=== PATIENT | male | born 1960 | race Caucasian/White ===

== ENCOUNTER 2016-04-17 19:44 | Emergency (ER) | payer SELFPAY ==
[~2016-04-17] VITALS: Ht 177.8 cm; Wt 91.0 kg
[2016-04-17 19:48] VITALS: BP 130/84; PULSE 75; RESP 16; TEMP 98; O2SAT 97
[2016-04-17 19:54] VITALS: O2SAT 94
[2016-04-17] MEDS ORDERED: DIPHTH/TETANUS/ACEL PERTUSSIS (BOOSTER) 0.5 ML VIAL/PFS IM ONE (20:00)
[2016-04-17] MEDS ORDERED: SODIUM CHLORIDE 0.9% FLUSH 5 ML FLUSH IVF PRN (20:00)
[2016-04-17 20:28] LABS: AUTOMATED NEUTROPHIL # 5.1 TH/MM3 (1.8-7.7); BASOPHIL % 0.5 % (0.0-2.0); EOSINOPHIL % 0.2 % (0.0-4.0); HEMATOCRIT 42.1 % (39.0-51.0); HEMO FLAGS DIFF FINAL; LYMPH % 24.2 % (9.0-44.0); LYMPHOCYTE # 1.8 TH/MM3 (1.0-4.8); MEAN CELL VOLUME 93.1 FL (80.0-100.0); MEAN CORPUSCULAR HEMOGLOBIN 32.9 PG (27.0-34.0); MEAN CORPUSCULAR HGB CONC 35.3 % (32.0-36.0); MONO % 4.3 % (0.0-8.0); NEUT % 70.8 % (16.0-70.0); PLATELET COUNT 218 TH/MM3 (150-450); RED BLOOD COUNT 4.52 MIL/MM3 (4.50-5.90); RED CELL DISTRIBUTION WIDTH 12.8 % (11.6-17.2); WHITE BLOOD COUNT 7.2 TH/MM3 (4.0-11.0)
[2016-04-17 20:30] LABS: APTT (PATIENT) 25.4 SEC (24.3-30.1); PROTHROMBIN TIME - PATIENT 10.9 SEC (9.8-11.6)
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
[2016-04-17] MEDS ORDERED: CYCL1TAB29 PO (20:46)
[2016-04-17] MEDS ORDERED: IBUP-988 PO (20:46)
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
[2016-04-17 20:50] LABS: BICARBONATE 25.6 MEQ/L (21.0-32.0); POTASSIUM 4.2 MEQ/L (3.5-5.1)
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
[2016-04-17 21:29] LABS: BLOOD, URINE NEG (NEG); COMMENT (UR) CULT NOT INDICATED; CULTURE IF INDICATED CULT NOT INDICATED; GLUCOSE,URINE NEG (NEG); KETONE, URINE NEG (NEG); MUCUS URINE FEW /lpf (OCC); NITRITE,URINE NEG (NEG); PH, URINE 5.5 (5.0-8.5); SQUAMOUS EPITHELIAL CELL URINE <1 /hpf (0-5); URINE COLOR LIGHT-YELLOW (YELLW/STRAW)
[2016-04-17 21:32] LABS: AMPHETAMINE, URINE NEG (NEG); BARBITURATES, URINE NEG (NEG); COCAINE, URINE POS (NEG)
[2016-04-17] MEDS ORDERED: SODIUM CHLOR 0.9% 1000 ML INJ 1,000 ML IV ONE (21:45)
[2016-04-17] MEDS ORDERED: HYDROmorphone HCL PF 1 MG/ML VIAL IV PUSH ONE (21:45)
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
== END 2016-04-18 00:31 | disposition home or self-care (01) ==
LOC: NEPE 19:44
DX: S09.90XA Unspecified injury of head, initial encounter (principal); F10.10 Alcohol abuse, uncomplicated; V27.4XXA Motorcycle driver injured in collision with fixed or stationary object in traffic accident, initial encounter; Y93.I9 Activity, other involving external motion; Z23 Encounter for immunization
CPT/HCPCS: 70450; 71010; 72125; 72170; 73610; 80048; 80307; 80320; 81001; 85025; 85610; 85730; 90471; 90715; 96374; 99284; J1170; J7030

== ENCOUNTER 2017-04-15 07:09 | Observation (INO) | payer SELFPAY ==
[~2017-04-15] VITALS: Ht 177.8 cm; Wt 84.4 kg
[2017-04-15] VITALS (8 sets, daily range): BP systolic 96–121; BP diastolic 62–88; PULSE 54–67; RESP 15–18; TEMP 96–97.8; O2SAT 97–98
[~2017-04-15 07:09] MED LIST: CYCL10TA PO; IBUP-988 PO
--- NOTE | 2017-04-15 07:37 | PD ---
HPI Chief Complaint: Chest Pain Time Seen by Provider: 07:22 Travel History International Travel<30 days: No Contact w/Intl Traveler<30days: No Traveled to known affect area: No History of Present Illness HPI 57yo M with no significant PMH presents to the ED with c/o chest pain. Said he had left sided chest pressure since but was intermittent and mild. Said it was constant since last night so decided to come in for evaluation. Had some numbness in left arm. +Nausea. Denies any fever, sob, vomiting, focal weakness. Pt said he also feel like he is in a dazed since and that he cant focus his vision. Denies any trauma or headache. PFSH Past Medical History Diminished Hearing: No Hiatal Hernia: Yes Past Surgical History Other Surgery: Yes (HERNIA REPAIR) Social History Alcohol Use: Yes (2 BEERS, 2 SHOTS OF GIN TODAY) Tobacco Use: No Substance Use: No Allergies-Medications (Allergen,Severity, Reaction): Coded Allergies: No Known Allergies (Unverified Adverse Reaction, Unknown, 04/15/17) Reported Meds & Prescriptions Reported Meds & Active Scripts Active No Active Prescriptions or Reported Medications Review of Systems Except as stated in HPI: all other systems reviewed are Neg Physical Exam Narrative GENERAL: 57yo M in mild distress. SKIN: Focused skin assessment warm/dry. HEAD: Atraumatic. Normocephalic. EYES: Pupils equal and round at 3m bilaterally. EOMI. No nystagmus. ENT: No nasal bleeding or discharge. Mucous membranes pink and moist. NECK: Trachea midline. No JVD. CARDIOVASCULAR: Regular rate and rhythm. No murmur appreciated. RESPIRATORY: No accessory muscle use. Clear to auscultation. Breath sounds equal bilaterally. GASTROINTESTINAL: Abdomen soft, non-tender, nondistended. MUSCULOSKELETAL: No obvious deformities. No clubbing. No cyanosis. No edema. NEUROLOGICAL: Awake and alert. No obvious cranial nerve deficits. Motor grossly within normal limits. Normal speech. PSYCHIATRIC: Appropriate mood and affect; insight and judgment normal. Data Data Last Documented VS Vital Signs Date Time Temp Pulse Resp B/P (MAP) Pulse Ox O2 Delivery O2 Flow Rate FiO2 04/15/17 09:20 65 16 98 Room Air 04/15/17 09:19 109/73 (85) 04/15/17 07:24 97.8 Orders Orders Electrocardiogram (04/15/17 07:31) Basic Metabolic Panel (Bmp) (04/15/17 07:31) Complete Blood Count With Diff (04/15/17 07:31) Magnesium (Mg) (04/15/17 07:31) Prothrombin Time / Inr (Pt) (04/15/17 07:31) Act Partial Throm Time (Ptt) (04/15/17 07:31) Troponin I (04/15/17 07:31) Lipase (04/15/17 07:31) Chest, Single Ap (04/15/17 07:31) Orthostatic Vital Signs (04/15/17 07:31) Ct Brain W/O Iv Contrast(Rout) (04/15/17 ) Aspirin (Aspirin) (04/15/17 09:00) Sodium Chlor 0.9% 1000 Ml Inj (Ns 1000 M (04/15/17 09:00) Labs Laboratory Tests Test 04/15/17 07:50 White Blood Count 6.5 TH/MM3 Red Blood Count 4.46 MIL/MM3 Hemoglobin 14.2 GM/DL Hematocrit 41.9 % Mean Corpuscular Volume 93.8 FL Mean Corpuscular Hemoglobin 31.8 PG Mean Corpuscular Hemoglobin Concent 33.9 % Red Cell Distribution Width 12.4 % Platelet Count 196 TH/MM3 Mean Platelet Volume 8.2 FL Neutrophils (%) (Auto) 50.9 % Lymphocytes (%) (Auto) 35.4 % Monocytes (%) (Auto) 10.1 % Eosinophils (%) (Auto) 3.1 % Basophils (%) (Auto) 0.5 % Neutrophils # (Auto) 3.3 TH/MM3 Lymphocytes # (Auto) 2.3 TH/MM3 Monocytes # (Auto) 0.7 TH/MM3 Eosinophils # (Auto) 0.2 TH/MM3 Basophils # (Auto) 0.0 TH/MM3 CBC Comment DIFF FINAL Differential Comment Prothrombin Time 11.0 SEC Prothromb Time International Ratio 1.1 RATIO Activated Partial Thromboplast Time 26.8 SEC Blood Urea Nitrogen 11 MG/DL Creatinine 1.00 MG/DL Random Glucose 88 MG/DL Calcium Level 8.5 MG/DL Magnesium Level 2.3 MG/DL Sodium Level 137 MEQ/L Potassium Level 3.7 MEQ/L Chloride Level 103 MEQ/L Carbon Dioxide Level 26.5 MEQ/L Anion Gap 8 MEQ/L Estimat Glomerular Filtration Rate 77 ML/MIN Troponin I LESS THAN 0.02 NG/ML Lipase 130 U/L [facility] Medical Decision Making Medical Screen Exam Complete: Yes Emergency Medical Condition: Yes Interpretation(s) EKG: NSR 61bpm. PACs. Normal axis. No ST segment elevation or depression. Differential Diagnosis ACS vs. GERD vs. pneumonia vs. musculoskeletal pain vs. dehydration Narrative Course 57yo M with left sided chest pain that has been constant since yesterday. Labs reviewed, no leukocytosis. Troponin negative. CXR showed bibasilar subsegmental atelectasis. CT brain negative. Pt given aspiring and NS IVF. Will admit pt for repeat EKG and cardiac enzymes. Discussed with Dr. Santos and accepted to her service. Diagnosis Primary Impression: Chest pain Qualified Codes: R07.9 - Chest pain, unspecified Admitting Information Admitting Physician Requests: Observation Scripts No Active Prescriptions or Reported Meds Kathleen Stuart DO Apr 15, 2017 07:37
--- NOTE | 2017-04-15 07:51 | RADRPT ---
EXAM DATE/TIME: 04/15/2017 07:41 [facility] COMPARISON: No previous studies available for comparison. INDICATIONS : Chest pain, left arm numbness, sweating, dizzy MEDICAL HISTORY : None. SURGICAL HISTORY : None. ENCOUNTER: Initial ACUITY: 2 days PAIN SCORE: 5/10 LOCATION: Bilateral chest FINDINGS: A single view of the chest demonstrates the lungs to be symmetrically aerated without evidence of mas s, infiltrate or effusion. Bibasilar subsegmental atelectasis. Heart normal in size. The cardiomedia stinal contours are unremarkable. Tortuous thoracic aorta. Osseous structures are intact. CONCLUSION: Bibasilar subsegmental atelectasis. Seth Rider MD on April 15, 2017 at 7:48 Board Certified Radiologist. This report was verified electronically.
[2017-04-15 08:01] LABS: AUTOMATED NEUTROPHIL # 3.3 TH/MM3 (1.8-7.7); BASOPHIL % 0.5 % (0.0-2.0); EOSINOPHIL # 0.2 TH/MM3 (0-0.4); EOSINOPHIL % 3.1 % (0.0-4.0); HEMATOCRIT 41.9 % (39.0-51.0); HEMOGLOBIN 14.2 GM/DL (13.0-17.0); LYMPH % 35.4 % (9.0-44.0); LYMPHOCYTE # 2.3 TH/MM3 (1.0-4.8); MEAN CELL VOLUME 93.8 FL (80.0-100.0); MEAN CORPUSCULAR HEMOGLOBIN 31.8 PG (27.0-34.0); MEAN CORPUSCULAR HGB CONC 33.9 % (32.0-36.0); MEAN PLATELET VOLUME 8.2 FL (7.0-11.0); MONO % 10.1 % (0.0-8.0); MONOCYTE # 0.7 TH/MM3 (0-0.9); NEUT % 50.9 % (16.0-70.0); PLATELET COUNT 196 TH/MM3 (150-450); RED BLOOD COUNT 4.46 MIL/MM3 (4.50-5.90); RED CELL DISTRIBUTION WIDTH 12.4 % (11.6-17.2); WHITE BLOOD COUNT 6.5 TH/MM3 (4.0-11.0)
[2017-04-15 08:07] LABS: CHLORIDE 103 MEQ/L (98-107); SODIUM (NA) 137 MEQ/L (136-145)
[2017-04-15 08:10] LABS: CALCIUM 8.5 MG/DL (8.5-10.1)
[2017-04-15 08:11] LABS: BICARBONATE 26.5 MEQ/L (21.0-32.0); BLOOD UREA NITROGEN 11 MG/DL (7-18); GLUCOSE,RANDOM 88 MG/DL (74-106); INTERNATIONAL NORMALIZED RATIO 1.1 RATIO; MAGNESIUM 2.3 MG/DL (1.5-2.5)
[2017-04-15 08:14] LABS: GLOMERULAR FILTRATION RATE 77 ML/MIN (>89)
[2017-04-15 08:19] LABS: TROPONIN I LESS THAN 0.02 NG/ML (0.02-0.05)
--- NOTE | 2017-04-15 08:30 | RADRPT ---
EXAM DATE/TIME: 04/15/2017 08:18 [facility] COMPARISON: No previous studies available for comparison. INDICATIONS : Chest tightness, with dizziness, nausea, and blurred vision. RADIATION DOSE: 62.62 CTDIvol (mGy) MEDICAL HISTORY : Hernia, hiatal. SURGICAL HISTORY : Inguinal hernia repair. Tonsillectomy. ENCOUNTER: Initial ACUITY: 2 days PAIN SCALE: 0/10 LOCATION: cranial TECHNIQUE: Multiple contiguous axial images were obtained of the head. Using automated exposure control and adj ustment of the mA and/or kV according to patient size, radiation dose was kept as low as reasonably a chievable to obtain optimal diagnostic quality images. DICOM format image data is available electro nically for review and comparison. FINDINGS: CEREBRUM: The ventricles are normal for age. No evidence of midline shift, mass lesion, hemorrhage or acute in farction. No extra-axial fluid collections are seen. POSTERIOR FOSSA: The cerebellum and brainstem are intact. The 4th ventricle is midline. The cerebellopontine angle i s unremarkable. EXTRACRANIAL: The visualized portion of the orbits is intact. Partial opacification of the ethmoid and maxillary si nuses SKULL: The calvaria is intact. No evidence of skull fracture. CONCLUSION: 1. No acute intracranial abnormality. 2. Sinus disease. Seth Rider MD on April 15, 2017 at 8:26 Board Certified Radiologist. This report was verified electronically.
[2017-04-15] MEDS ORDERED: ASPIRIN 325 MG TAB PO ONE (09:00)
[2017-04-15] MEDS ORDERED: SODIUM CHLOR 0.9% 1000 ML INJ 1,000 ML IV ONE (09:00)
[2017-04-15] MEDS ORDERED: REGADENOSON INJ 0.4 MG/5 ML SYR IV ONE (09:38)
[2017-04-15] MEDS ORDERED: NITROGLYCERIN 0.4 MG SL 25 TABS/BTL SL PRN (09:45)
[2017-04-15] MEDS ORDERED: ACETAMINOPHEN 500 MG CPLT PO PRN (09:45)
[2017-04-15] MEDS ORDERED: ACETAMINOPHEN/HYDROcodone 325 MG/7.5 MG TAB PO PRN (09:45)
[2017-04-15] MEDS ORDERED: SODIUM CHLORIDE 0.9% FLUSH 10 ML FLUSH IV FLUSH PRN (09:45)
[2017-04-15] MEDS ORDERED: ONDANSETRON HCL 4 MG/2 ML VIAL IV PUSH PRN (09:45)
[2017-04-15 10:49] LABS: TROPONIN I LESS THAN 0.02 NG/ML (0.02-0.05)
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
--- NOTE | 2017-04-15 12:52 | EKG ---
Date Performed: 04/15/2017 Time Performed: 07:15:40 PTAGE: 57 years EKG: Sinus rhythm WITH OCCASIONAL SUPRAVENTRICULAR PREMATURE COMPLEXES BORDERLINE ECG Compared to PREVIOUS TRACING , PACs are new. PREVIOUS TRACIN12/14/1999 15.01.16 DOCTOR: Yuriy Marin Interpretating Date/Time 04/15/2017 12:50:37
--- NOTE | 2017-04-15 14:54 | RADRPT ---
EXAM DATE/TIME: 04/15/2017 13:15 [place] COMPARISON: No previous studies available for comparison. INDICATIONS : Left chest pain. Angina. DOSE: 27.2 mCi Tc99m Myoview at stress. 8.6 mCi Tc99m Myoview at rest. 0.4 mg Lexiscan STRESS SYMPTOMS: Dyspnea and legs tired. EJECTION FRACTION: 61% MEDICAL HISTORY : None. SURGICAL HISTORY : Tonsillectomy. Hernia repair. ENCOUNTER: Initial ACUITY: 1 day PAIN SCALE: 4/10 LOCATION: Left chest TECHNIQUE: The patient underwent pharmacologic stress with infusion of prescribed dose. Continuous ECG tracing was monitored during stress. Gated SPECT imaging was performed after stress and conventional SPECT i maging was performed at rest. The examination was performed on a SPECT/CT scanner, both attenuation and non-corrected datasets were reviewed. FINDINGS: DISTRIBUTION: The maximum perfused segment at stress is in the septal and lateral wall. PERFUSION STUDY: The pattern of perfusion at stress is within normal limits. GATED STUDY: There is intact wall motion and thickening without hypokinetic or dyskinetic segments. CONCLUSION: 1. No reversible perfusion defects. 2. Normal ejection fraction. RISK CATEGORY: Low (<1% Annual Mortality Rate) Seth Rider MD on April 15, 2017 at 14:51 Board Certified Radiologist. This report was verified electronically.
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
[2017-04-15] MEDS ORDERED: SODIUM CHLORIDE 0.9% FLUSH 10 ML FLUSH IV FLUSH SCH (21:00)
[2017-04-16] MEDS ORDERED: ASPIRIN 325 MG TAB PO SCH (09:00)
--- NOTE | 2017-04-16 16:37 | TR ---
Date Performed: 04/15/2017 Time Performed: 13:49:10 DOCTOR: Adryan Paz DRUG LIST: CLINICAL HISTORY: REASON FOR TEST: REASON FOR ENDING: OBSERVATION: CONCLUSION: Lexiscan stress test was performed under standard four minute protocol. Radionuclid e was injected one minute prior to ending the test. No electrocardiographic abormalities were present to suggest ischemia. Nuclear imaging and interpretation are pending. COMMENTS:
== END 2017-04-15 15:47 | disposition home or self-care (01) ==
LOC: PHED 07:09 → PHEDA 09:37 → PH3B 10:26
PROVIDERS: ADMIT Hospitalist; ATTEND Hospitalist
DX: R07.89 Other chest pain (principal); R42 Dizziness and giddiness; R20.0 Anesthesia of skin; H53.8 Other visual disturbances; R11.0 Nausea; I20.9 Angina pectoris, unspecified; S06.9X0S Unspecified intracranial injury without loss of consciousness, sequela; J98.11 Atelectasis; F17.210 Nicotine dependence, cigarettes, uncomplicated
CPT/HCPCS: 70450; 71045; 78452; 80048; 82550; 82552; 83690; 83735; 84484; 85025; 85610; 85730; 93005; 93017; 96360; 99285; A9502; G0378; J2785; J7030